=== PATIENT | female | born 1940 | race Caucasian/White ===

== ENCOUNTER 2017-04-03 10:30 | Outpatient (RCR) | payer MEDICARE, OTHER ==
[~2017-04-03 10:30] MED LIST: AMIO200T2 PO; APIX5TAB PO; DIFL5DRO OD; FOSI20TA3 PO; FOSI40TA2 PO; FURO40TA4 PO; LEVO100T7 PO; LVT.1T PO; METO-351 PO; METO100T12 PO; OMEP20CA12 PO; OMEP40CA36 PO; PLTR10OP OD; POTA-53 PO; POTA8TAB6 PO; TRIMETHOPRIM OD
== END 2017-07-02 | disposition home or self-care (01) ==
LOC: CARD 10:30
PROVIDERS: ATTEND Internal Medicine Cardiovascular Disease
DX: I48.0 Paroxysmal atrial fibrillation (principal); I11.0 Hypertensive heart disease with heart failure; I50.9 Heart failure, unspecified; I34.0 Nonrheumatic mitral (valve) insufficiency; E78.2 Mixed hyperlipidemia; R07.9 Chest pain, unspecified
CPT/HCPCS: 93225; 93226

== ENCOUNTER → 2017-09-11 | Outpatient (CLI) | payer MEDICARE, OTHER ==
[~2017-09-11] VITALS: Ht 167.6 cm; Wt 104.8 kg
[~2017-09-11] MED LIST changes: +CATHETER FLUSH 10 ML SYR IV PRN; +REGADENOSON 0.4 MG/5 ML SYR (LEXISCAN) IV ONE
[2017-09-11 13:14] VITALS: BP 208/86
[2017-09-11 13:17] VITALS: BP 175/71
--- NOTE | 2017-09-11 18:46 | STRESS TEST ---
DATE OF SERVICE: 09/11/2017 LEXISCAN MYOVIEW STRESS TEST REPORT REFERRING PHYSICIAN: Dr. Maximo Reis. Baseline heart rate is 58, baseline blood pressure 208/86. Baseline EKG is sinus rhythm with no ischemic changes. SUMMARY: The patient was injected with 10.09 mCi of technetium-99 Myoview and the resting images were obtained. Then, the patient received 0.4 mg of Lexiscan followed by 31.7 mCi of technetium-99 Myoview. Throughout the test, there were no EKG changes. The resting and stress images were reviewed and compared in the short axis, horizontal long axis, and vertical long axis views. Review of the images showed breast attenuation with reversible ischemia involving the whole anterior wall, anterolateral wall and anterior septum. SSS is 12, SDS 9, TID value 1.05. On the gated images, the left ventricle appeared to be in normal size with normal contractility. Calculated ejection fraction 63%. CONCLUSION: 1. The patient tolerated Lexiscan well. 2. Breast attenuation with reversible ischemia involving the whole anterior wall, anterolateral wall and anterior septum. 3. Normal left ventricular size with normal contractility. Calculated ejection fraction 63%. Job ID: [id number] DocumentID: [id number] Dictated Date: 09/11/2017 15:28:05 Transfer Machine Operator Date: 09/11/2017 18:45:44 Dictated By: NAHUN BEATTY MD
== END ==
LOC: CARD 09:29
PROVIDERS: ATTEND Physician Assistant
DX: I48.0 Paroxysmal atrial fibrillation (principal); I11.0 Hypertensive heart disease with heart failure; I50.9 Heart failure, unspecified; E78.5 Hyperlipidemia, unspecified; R07.89 Other chest pain; I27.20 Pulmonary hypertension, unspecified; I08.1 Rheumatic disorders of both mitral and tricuspid valves
CPT/HCPCS: 78452; 93017; 93306